=== PATIENT | female | born 1965 | race Caucasian/White ===

== ENCOUNTER → 2024-01-21 14:52 | Outpatient (REF) | payer OTHER, SELFPAY | LOC: WDC 14:52 | PROVIDERS: ATTENDING PHYSICIAN Obstetrics & Gynecology; FAMILY PHYSICIAN Internal Medicine | DX: R92.2 Inconclusive mammogram (principal) | CPT/HCPCS: 76641 ==

== ENCOUNTER → 2024-11-07 10:02 | Outpatient (REF) | payer OTHER, SELFPAY | LOC: HWWDC 10:02 | PROVIDERS: ATTENDING PHYSICIAN Obstetrics & Gynecology; FAMILY PHYSICIAN Internal Medicine | DX: Z12.31 Encounter for screening mammogram for malignant neoplasm of breast (principal) | CPT/HCPCS: 77063; 77067 ==

== ENCOUNTER → 2025-02-12 10:58 | Outpatient (REF) | payer OTHER, SELFPAY | LOC: WDC 10:58 | PROVIDERS: ATTENDING PHYSICIAN Obstetrics & Gynecology; FAMILY PHYSICIAN Internal Medicine | DX: R92.2 Inconclusive mammogram (principal) | CPT/HCPCS: 76641 ==